=== PATIENT | male | born 1990 | race Caucasian/White ===

== ENCOUNTER → 2020-08-04 | Outpatient (CLI) | payer BC ==
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
== END ==
LOC: RAD 10:29
PROVIDERS: ATTEND Family Medicine
DX: M25.462 Effusion, left knee (principal)
CPT/HCPCS: 73562

== ENCOUNTER → 2020-12-29 | Outpatient (CLI) | payer OTHER, BC ==
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
== END ==
LOC: RAD 15:21
PROVIDERS: ATTEND Family Medicine
DX: M54.2 Cervicalgia (principal); V89.2XXA Person injured in unspecified motor-vehicle accident, traffic, initial encounter
CPT/HCPCS: 72040; 72072; 72100